=== PATIENT | male | born 1935 | race American Indian/Alaskan Native ===

== ENCOUNTER 2018-02-18 18:02 | Emergency (ER) | payer MEDICARE, MEDICAID ==
--- NOTE | 2018-02-18 18:03 | EDM.PDOC ---
<Ck Dillard - Last Filed: 02/18/18 17:52> ED HPI GENERAL MEDICAL PROBLEM - General Chief Complaint: Neuro Symptoms/Deficits Stated Complaint: STROKE Time Seen by Provider: 02/18/18 17:40 Source of Information: Reports: Patient History Limitations: Reports: No Limitations - History of Present Illness INITIAL COMMENTS - FREE TEXT/NARRATIVE: This 82 yo male patient was brought to the ED by [facility] due to altered mentation and possible stroke. The patient's family reported to EMS that the patient was last seen normal at about 1600 today. When they got home (just before calling EMS), the patient was found siting in the lazy[place] not responding normally. The patient reports he started getting sick 2 days ago and has gotten worse today. The patient reports he has had a productive cough over the past couple of days. The patient reports he has noticed increased lower extremity swelling in addition to the other symptoms. Onset Date: 02/17/18 (according to patient with cough and generalized weakness) Duration: Constant Location: Reports: Chest Quality: Reports: Other Severity: Severe Improves with: Reports: None Worsens with: Reports: None Context: Reports: Other Associated Symptoms: Reports: cough w sputum, Weakness - Related Data Allergies Allergy/AdvReac Type Severity Reaction Status Date / Time No Known Allergies Allergy Verified 02/18/18 18:27 Home Meds: Home Meds Furosemide 20 mg PO DAILY 02/18/18 [History] Lisinopril 20 mg PO DAILY 02/18/18 [History] Potassium Chloride 10 meq PO BID 02/18/18 [History] metFORMIN [Glucophage XR] 500 mg PO BID 02/18/18 [History] ED ROS GENERAL - Review of Systems Review Of Systems: ROS reveals no pertinent complaints other than HPI. ED EXAM, GENERAL - Physical Exam Exam: See Below Exam Limited By: No Limitations General Appearance: Alert, WD/WN, Moderate Distress, Thin Eye Exam: Bilateral Eye: EOMI, Normal Inspection, PERRL Ears: Normal External Exam, Normal Canal, Hearing Grossly Normal, Normal TMs Nose: Normal Inspection, Normal Mucosa, No Blood Throat/Mouth: Normal Inspection, Normal Lips, Normal Teeth, Normal Gums, Normal Oropharynx, Normal Voice, No Airway Compromise Head: Atraumatic, Normocephalic Neck: Normal Inspection, Supple, Non-Tender, Full Range of Motion Respiratory/Chest: Decreased Breath Sounds, Rhonchi (bilateral lower lobes) Cardiovascular: Normal Peripheral Pulses, Regular Rate, Rhythm, No Gallop, No JVD, No Murmur, No Rub GI/Abdominal: Normal Bowel Sounds, Soft, Non-Tender, No Organomegaly, No Distention, No Abnormal Bruit, No Mass (Male) Exam: Deferred Rectal (Males) Exam: Deferred Back Exam: Normal Inspection, Full Range of Motion, NT Extremities: Pedal Edema (bilateral 3+) Neurological: Alert, Oriented, CN II-XII Intact, Normal Cognition, Normal Gait, Normal Reflexes, No Motor/Sensory Deficits Psychiatric: Normal Affect, Normal Mood Skin Exam: Warm, Dry, Intact, Normal Color, No Rash Lymphatic: No Adenopathy Course - Vital Signs Last Recorded V/S: Last Vital Signs Temp 97.2 F 02/18/18 17:30 Pulse 75 02/18/18 17:30 Resp 17 02/18/18 17:30 BP 127/76 02/18/18 17:30 Pulse Ox 97 02/18/18 17:30 - Orders/Labs/Meds Orders: Active Orders 24 hr Category Date Time Status EKG Documentation Completion [RC] URGENT Care 02/18/18 17:37 Active CULTURE BLOOD [BC] Stat Lab 02/18/18 17:58 Received Labs: Laboratory Tests 02/18/18 02/18/18 02/18/18 Range/Units 17:25 17:58 17:58 WBC (5.0-10.0) 10^3/uL RBC (4.6-6.2) 10^6/uL Hgb (14.0-18.0) g/dL Hct (40.0-54.0) % MCV (80-100) fL MCH (27.0-34.0) pg MCHC (33.0-35.0) g/dL Plt Count (150-450) 10^3/uL Neut % (Auto) (42.2-75.2) % Lymph % (Auto) (20.5-50.1) % Jasper % (Auto) (2-8) % Eos % (Auto) (1.0-3.0) % Baso % (Auto) (0.0-1.0) % Sodium (135-145) mmol/L Potassium (3.6-5.0) mmol/L Chloride (101-111) mmol/L Carbon Dioxide (21.0-31.0) mmol/L Anion Gap BUN (7-18) mg/dL Creatinine (0.6-1.3) mg/dL Est Cr Clr Drug Dosing Estimated GFR (MDRD) BUN/Creatinine Ratio Glucose (74-105) mg/dL POC Glucose 127 H (83-110) mg/dl Lactic Acid (0.5-2.2) mmol/L Calcium (8.4-10.2) mg/dl Total Bilirubin (0.2-1.0) mg/dL AST (10-42) IU/L ALT (10-60) IU/L Alkaline Phosphatase (42-121) IU/L Ammonia 13 (11-35) umol/L Troponin I (0.00-0.02) ng/ml B-Natriuretic Peptide (0-100) pg/ml Total Protein (6.7-8.2) g/dl Albumin (3.2-5.5) g/dl Globulin Albumin/Globulin Ratio Amylase 63 (28-100) U/L Lipase 14 L (22-51) U/L Ethyl Alcohol mg/dL 02/18/18 02/18/18 02/18/18 Range/Units 17:58 17:58 17:58 WBC 10.7 H (5.0-10.0) 10^3/uL RBC 3.69 L (4.6-6.2) 10^6/uL Hgb 10.9 L (14.0-18.0) g/dL Hct 34.0 L (40.0-54.0) % MCV 92.1 (80-100) fL MCH 29.5 (27.0-34.0) pg MCHC 32.1 L (33.0-35.0) g/dL Plt Count 182 (150-450) 10^3/uL Neut % (Auto) 71.0 (42.2-75.2) % Lymph % (Auto) 18.8 L (20.5-50.1) % Jasper % (Auto) 7.5 (2-8) % Eos % (Auto) 2.0 (1.0-3.0) % Baso % (Auto) 0.7 (0.0-1.0) % Sodium 135 (135-145) mmol/L Potassium 4.3 (3.6-5.0) mmol/L Chloride 104 (101-111) mmol/L Carbon Dioxide 25.0 (21.0-31.0) mmol/L Anion Gap 10.3 BUN 14 (7-18) mg/dL Creatinine 0.8 (0.6-1.3) mg/dL Est Cr Clr Drug Dosing TNP Estimated GFR (MDRD) > 60 BUN/Creatinine Ratio 17.50 Glucose 129 H (74-105) mg/dL POC Glucose (83-110) mg/dl Lactic Acid 1.4 (0.5-2.2) mmol/L Calcium 8.6 (8.4-10.2) mg/dl Total Bilirubin 0.5 (0.2-1.0) mg/dL AST 23 (10-42) IU/L ALT 11 (10-60) IU/L Alkaline Phosphatase 99 (42-121) IU/L Ammonia (11-35) umol/L Troponin I 0.04 H* (0.00-0.02) ng/ml B-Natriuretic Peptide (0-100) pg/ml Total Protein 6.9 (6.7-8.2) g/dl Albumin 3.3 (3.2-5.5) g/dl Globulin 3.6 Albumin/Globulin Ratio 0.92 Amylase (28-100) U/L Lipase (22-51) U/L Ethyl Alcohol mg/dL 02/18/18 02/18/18 Range/Units 17:58 17:58 WBC (5.0-10.0) 10^3/uL RBC (4.6-6.2) 10^6/uL Hgb (14.0-18.0) g/dL Hct (40.0-54.0) % MCV (80-100) fL MCH (27.0-34.0) pg MCHC (33.0-35.0) g/dL Plt Count (150-450) 10^3/uL Neut % (Auto) (42.2-75.2) % Lymph % (Auto) (20.5-50.1) % Jasper % (Auto) (2-8) % Eos % (Auto) (1.0-3.0) % Baso % (Auto) (0.0-1.0) % Sodium (135-145) mmol/L Potassium (3.6-5.0) mmol/L Chloride (101-111) mmol/L Carbon Dioxide (21.0-31.0) mmol/L Anion Gap BUN (7-18) mg/dL Creatinine (0.6-1.3) mg/dL Est Cr Clr Drug Dosing Estimated GFR (MDRD) BUN/Creatinine Ratio Glucose (74-105) mg/dL POC Glucose (83-110) mg/dl Lactic Acid (0.5-2.2) mmol/L Calcium (8.4-10.2) mg/dl Total Bilirubin (0.2-1.0) mg/dL AST (10-42) IU/L ALT (10-60) IU/L Alkaline Phosphatase (42-121) IU/L Ammonia (11-35) umol/L Troponin I (0.00-0.02) ng/ml B-Natriuretic Peptide 63 (0-100) pg/ml Total Protein (6.7-8.2) g/dl Albumin (3.2-5.5) g/dl Globulin Albumin/Globulin Ratio Amylase (28-100) U/L Lipase (22-51) U/L Ethyl Alcohol < 5 mg/dL Meds: Medications Discontinued Medications Generic Name Dose Route Start Last Admin Trade Name Freq PRN Reason Stop Dose Admin Alteplase, Recombinant 7 mg 02/18/18 20:10 02/18/18 20:35 Activase IVPUSH 02/18/18 20:11 7 mg ONETIME ONE Administration Alteplase, Recombinant 61 mg 02/18/18 20:17 02/18/18 20:36 Activase IV 02/18/18 20:18 61 mg .INFUSION ONE Administration Levetiracetam 1,000 mg/ Sodium 110 mls @ 400 mls/hr 02/18/18 19:31 02/18/18 19:46 Chloride IV 02/18/18 19:45 400 mls/hr ONETIME ONE Administration Departure - Departure Disposition: DC/Tfer to Acute Hospital 02 Clinical Impression: Observed seizure-like activity Altered mental status, unspecified Qualifiers: Altered mental status type: disorientation Qualified Code(s): R41.0 - Disorientation, unspecified - Discharge Information Referrals: PCP,None [Primary Care Provider] - Forms: ED Department Discharge <Tatiana Walton - Last Filed: 02/19/18 03:10> Course - Re-Assessments/Exams Free Text/Narrative Re-Assessment/Exam: 02/19/18 03:03 TC consult [facility], No bed available. TC Dr. Dillon Read, accepting of patient. Dr. Rafael Williamson requesting initiation of TpA. Risks benefits discussed with niece/guardian. Desire to proceed with infusion. Family requesting DNR.status for patient prior to transfer. Patient alert , speech mostly clear, nonsensical, does not follow most verbal commands but will mimic actions. VSS. Family at bedside. Departure - Departure Time of Disposition: 21:55 Condition: Undetermined
[2018-02-18 18:29] LABS: CHLORIDE,CL 104 mmol/L (101-111); SODIUM,NA 135 mmol/L (135-145)
[2018-02-18] MEDS ORDERED: levETIRAcetam 1,000 MG in Sodium Chloride 0.9% 100 ML IV ONE (19:31)
--- NOTE | 2018-02-19 13:24 | EKG ---
02/18/2018- AGUILAR OSORIO - FINDINGS: EKG, per my reading, shows sinus rhythm with right bundle-branch block at the rate of 76. [facility] /[id number]
== END 2018-02-18 20:50 ==
LOC: DL.ED 18:02
DX: R56.9 Unspecified convulsions (principal); R41.0 Disorientation, unspecified; Z79.899 Other long term (current) drug therapy; Z79.84 Long term (current) use of oral hypoglycemic drugs
CPT/HCPCS: 36415; 70450; 71045; 80053; 82140; 82150; 82962; 83605; 83690; 83880; 84484; 85025; 87040; 93005; 93010; 96365; 96375; 99285; G0480; J1953; J2997; J7050

== ENCOUNTER 2018-07-02 07:08 | Day surgery (SDC) | payer MEDICARE, MEDICAID ==
[~2018-07-02 07:08] MED LIST: Midazolam 1 MG/ML 2 ML SDV ONE; fentaNYL 100 MCG/2 ML SDV ONE
[2018-07-02] MEDS ORDERED: fentaNYL 100 MCG/2 ML SDV IV ONE ×2 (08:05→08:06)
[2018-07-02] MEDS ORDERED: Midazolam 1 MG/ML 2 ML SDV IV ONE (08:07)
[2018-07-02] MEDS ORDERED: Dextrose 5%-0.45% NaCl 1,000 ML IV SCH (08:15)
--- NOTE | 2018-07-02 14:18 | OR ---
DATE: 07/02/2018 PROCEDURE: Esophagogastroduodenoscopy and multiple pinch biopsies. INSTRUMENT USED: [id number] Olympus video panendoscope. PREMEDICATIONS: No oral topical anesthesia used. Fentanyl 100 mcg intravenous and Versed 1 mg intravenous. The procedure was done under pulse oximetry, BP recording, and cardiac cath tech. INDICATION: The patient with previous gastric surgery and recently detected iron-deficiency anemia. Also has difficulties of chronic diarrhea. Esophagogastroduodenoscopy is for formal detection of any active erosive lesions, malignancy also under consideration, H. pylori status to be determined, endoscopic hemostasis therapy if needed. PROCEDURE IN DETAIL: The scope was passed with ease. Adequate visualization of the esophagus was made from [id number] areas. No upper esophageal lesions were identified. No distal esophageal stricture. No uphill or downhill esophageal varices. No Rita-Nicolas tear. No evidence of erosive esophagitis by [place] criteria. No esophageal polyp or tumor mass identified. Z-line was seen at around 40 cm distal to the oral verge, configuration consistent with grade 1 by ZAP classification. No proximal gastric varices noted. Gastric fundus examination by retroflexion showed no polypoid lesions. No gastric ulcer, malignant mass, or vascular ectasia identified. Visualized loops of the small bowel were unremarkable. Multiple pinch biopsies were taken from the distal and proximal gastric mucosa and sent for PyloriTek test for H. pylori, and if negative in an hour, the tissue is to be sent for histopathology. No bleeding was noted from any of the visualized areas at the completion of examination. Photographs were taken of the surgical site, gastric fundus, as well as distal esophagus. IMPRESSION: Status post gastric surgery. The patient tolerated the procedure well. [facility] /[id number]
--- NOTE | 2018-07-03 08:58 | LETTER ---
07/02/2018 Marilyn Strickland MD [facility] [address] [place] [address] RE: AGUILAR OSORIO : [address] Strickland: Mr. Aguilar Osorio had esophagogastroduodenoscopy done this morning and he tolerated the procedure well. I herewith send a copy of the endoscopy note and photographs for your review. Thank you. Sincerely, [facility] /[id number]
== END 2018-07-02 09:55 | disposition home or self-care (01) ==
LOC: DL.ENDO 07:08
PROVIDERS: ATTEND Internal Medicine Gastroenterology
DX: D50.9 Iron deficiency anemia, unspecified (principal); K52.9 Noninfective gastroenteritis and colitis, unspecified; K29.50 Unspecified chronic gastritis without bleeding; Z98.84 Bariatric surgery status
CPT/HCPCS: 43239; 87077; J7042; J2250; J3010

== ENCOUNTER 2018-07-09 06:18 | Day surgery (SDC) | payer MEDICARE, MEDICAID ==
[~2018-07-09 06:18] MED LIST changes: +Dextrose 5%-0.45% NaCl 1,000 ML IV SCH; +Sodium Chloride 0.9% 10 ML Syringe FLUSH PRN
[2018-07-09] MEDS ORDERED: fentaNYL 100 MCG/2 ML SDV IV ONE ×3 (06:19→07:12)
== END 2018-07-09 09:23 | disposition home or self-care (01) ==
LOC: DL.ENDO 06:18
PROVIDERS: ATTEND Internal Medicine Gastroenterology
DX: D50.9 Iron deficiency anemia, unspecified (principal); K52.9 Noninfective gastroenteritis and colitis, unspecified; Z53.8 Procedure and treatment not carried out for other reasons
CPT/HCPCS: J3010; J7042

== ENCOUNTER 2019-12-12 07:01 | Emergency (ER) | payer MEDICARE, MEDICAID ==
--- NOTE | 2019-12-12 07:13 | PCM.SN ---
- Free Text/Narrative Note: Michael Chacko (Frank) is an 84-year-old male who resides at [facility] (formerly [facility]). I received a call from the nursing staff at 0630 this morning to say that Irwin was complaining of abdominal pain. They reported that his abdomen seemed distended, with high-pitched bowel sounds. No vomiting or diarrhea. No blood by mouth or rectum. Last BM last night. VS this mornin/77. HR 74. RR 18. Temp97.5F. Ox Sat 96% RA. Past Medical History: Hypertension. COPD, continues to smoke. Type 2 diabetes, which has been diet controlled. However, most recent A1c increased to 10.4% from 6.6% one year ago; plan to restart on meds. 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 Note: was admitted to [facility] in August 2018 when he presented with abdominal pain. CT showed changes in colon consistent with a colitis. No recurrent since that time. Failed to show up for a colonoscopy. Impression: Abdominal pain. Past history as above. Plan: Referred to ED for further evaluation.
[2019-12-12] MEDS ORDERED: Iopamidol 612 MG/ML 100 ML Bottle IVPUSH ONE (07:45)
--- NOTE | 2019-12-12 07:52 | EDM.PDOC ---
ED HPI GENERAL MEDICAL PROBLEM - General Chief Complaint: Abdominal Pain Stated Complaint: ABDOMINAL PAIN Time Seen by Provider: 12/12/19 07:20 Source of Information: Reports: Patient, Penitentiary Records, Provider (Dr. Hein), RN, RN Notes Reviewed History Limitations: Reports: No Limitations - History of Present Illness INITIAL COMMENTS - FREE TEXT/NARRATIVE: patient presents to ER from [facility] with the complaint of abdominal distention, abdominal pain, nausea. Patient states it's been several days since his last normal bowel movement. Yesterday he states he had several small hard pieces. Today he had a small bowel movement that was loose. Onset: Today, Sudden Upper Abdomen Pain Score (Numeric/FACES): 8 - Related Data Allergies Allergy/AdvReac Type Severity Reaction Status Date / Time No Known Allergies Allergy Verified 12/12/19 06:52 Home Meds: Home Meds Lisinopril 20 mg PO DAILY 02/18/18 [History] Aspirin [Halfprin] 81 mg PO DAILY 07/02/18 [History] Cyanocobalamin (Vitamin B-12) [B-12] 1,000 mcg PO DAILY 07/02/18 [History] traZODone HCl [Trazodone HCl] 50 mg PO BEDTIME 07/02/18 [History] Acetaminophen 650 mg PO Q6H PRN 12/12/19 [History] Albuterol [Proventil Neb Soln] 2.5 mg NEB Q4H PRN 12/12/19 [History] Bisacodyl [Dulcolax] 1 supp RECTAL DAILY PRN 12/12/19 [History] Tamsulosin [Flomax] 0.4 mg PO DAILY 12/12/19 [History] guaiFENesin/Dextromethorphan [Mucinex Dm ER 600-30 mg Tablet] 1 each PO BID [History] Past Medical History HEENT History: Reports: Cataract, Impaired Vision, Other (See Below) Other HEENT History: difficulty swallowing when eating Cardiovascular History: Reports: Heart Failure, Hypertension, Pacemaker Respiratory History: Reports: Asthma, Bronchitis, Recurrent, SOB Gastrointestinal History: Reports: Chronic Diarrhea, Other (See Below) Other Gastrointestinal History: some bowel incontinence Musculoskeletal History: Reports: Arthritis Neurological History: Reports: CVA, Headaches, Chronic Other Neuro History: chronic acute headaches. stroke in 50's Psychiatric History: Reports: Depression Endocrine/Metabolic History: Reports: Diabetes, Type II, Obesity/BMI 30+ Hematologic History: Reports: None Immunologic History: Reports: None Oncologic (Cancer) History: Reports: None Dermatologic History: Reports: None Other Dermatologic History: tattoos on arms bilaterally - Infectious Disease History Infectious Disease History: Reports: Chicken Pox, Measles, Mumps, Pertussis ( Whooping Cough) - Past Surgical History HEENT Surgical History: Reports: Cataract Surgery Other HEENT Surgeries/Procedures: bilateral cataract surgery Cardiovascular Surgical History: Reports: Other (See Below) Other Cardiovascular Surgeries/Procedures: has pacemaker GI Surgical History: Reports: EGD Other GI Surgeries/Procedures: some incontinence Neurological Surgical History: Reports: None Musculoskeletal Surgical History: Reports: None Social & Family History - Family History Family Medical History: Noncontributory - Tobacco Use Smoking Status *Q: Current Every Day Smoker Years of Tobacco use: 56 Packs/Tins Daily: 0.3 Used Tobacco, but Quit: No Second Hand Smoke Exposure: No - Caffeine Use Caffeine Use: Reports: Coffee, Soda, Tea Caffeine Use Comment: 4-5 CUPS DAILY - Recreational Drug Use Recreational Drug Use: No ED ROS GENERAL - Review of Systems Review Of Systems: Comprehensive ROS is negative, except as noted in HPI. ED EXAM, GI/ABD - Physical Exam Exam: See Below Exam Limited By: No Limitations General Appearance: Alert, WD/WN, No Apparent Distress, Moderate Distress Eyes: Bilateral: Normal Appearance, EOMI Ears: Normal External Exam, Hearing Grossly Normal Nose: Normal Inspection Throat/Mouth: Normal Inspection, Normal Voice, No Airway Compromise Head: Atraumatic, Normocephalic Neck: Normal Inspection, Supple, Non-Tender, Full Range of Motion Respiratory/Chest: No Respiratory Distress, No Accessory Muscle Use, Chest Non- Tender, Decreased Breath Sounds Cardiovascular: Normal Peripheral Pulses, Regular Rate, Rhythm, No Edema, No Gallop, No JVD, No Murmur, No Rub GI/Abdominal Exam: Distended, Tender, Abnormal Bowel Sounds (Hypoactive) (Male) Exam: Deferred Rectal (Males) Exam: Deferred Back Exam: Normal Inspection Extremities: Normal Inspection, Normal Range of Motion, Non-Tender, No Pedal Edema, Normal Capillary Refill Neurological: Alert, Oriented, CN II-XII Intact, Normal Cognition Psychiatric: Normal Affect, Normal Mood Skin Exam: Warm, Dry, Intact, Normal Color, No Rash Lymphatic: No Adenopathy Course - Vital Signs Last Recorded V/S: Last Vital Signs Temp 97.0 F 12/12/19 07:08 Pulse 86 12/12/19 07:08 Resp 18 12/12/19 07:08 BP 179/68 H 12/12/19 07:08 Pulse Ox 99 12/12/19 07:08 - Orders/Labs/Meds Labs: Laboratory Tests 12/12/19 12/12/19 12/12/19 Range/Units 07:20 07:20 07:20 WBC 11.0 H (5.0-10.0) 10^3/uL RBC 4.33 L (4.6-6.2) 10^6/uL Hgb 12.7 L D (14.0-18.0) g/dL Hct 38.4 L (40.0-54.0) % MCV 88.7 D (80-100) fL MCH 29.3 (27.0-34.0) pg MCHC 33.1 (33.0-35.0) g/dL Plt Count 213 D (150-450) 10^3/uL Neut % (Auto) 82.7 H (42.2-75.2) % Lymph % (Auto) 11.7 L (20.5-50.1) % Wy[place] % (Auto) 5.2 (2-8) % Eos % (Auto) 0.1 L (1.0-3.0) % Baso % (Auto) 0.3 (0.0-1.0) % Sodium 129 L (135-145) mmol/L Potassium 3.5 L (3.6-5.0) mmol/L Chloride 100 L (101-111) mmol/L Carbon Dioxide 18.0 L (21.0-31.0) mmol/L Anion Gap 14.5 BUN 26 H (7-18) mg/dL Creatinine 1.0 (0.6-1.3) mg/dL Est Cr Clr Drug Dosing 46.98 mL/min Estimated GFR (MDRD) > 60 BUN/Creatinine Ratio 26.00 Glucose 327 H (74-105) mg/dL Lactic Acid 1.0 (0.5-2.0) mmol/L Calcium 8.5 (8.4-10.2) mg/dl Total Bilirubin 0.8 (0.2-1.0) mg/dL AST 19 (10-42) IU/L ALT 24 (10-60) IU/L Alkaline Phosphatase 113 (42-121) IU/L Total Protein 7.5 (6.7-8.2) g/dl Albumin 3.5 (3.2-5.5) g/dl Globulin 4.0 Albumin/Globulin Ratio 0.88 Amylase 42 (28-100) U/L Lipase 19 L (22-51) U/L Meds: Medications Discontinued Medications Generic Name Dose Route Start Last Admin Trade Name Freq PRN Reason Stop Dose Admin Fentanyl 50 mcg 12/12/19 08:22 12/12/19 08:35 Sublimaze IVPUSH 12/12/19 08:23 50 mcg ONETIME ONE Administration Sodium Chloride 1,000 mls @ 150 mls/hr 12/12/19 08:22 12/12/19 08:34 Normal Saline IV 12/12/19 15:01 150 mls/hr .BOLUS ONE Administration Iopamidol 100 ml 12/12/19 07:45 12/12/19 08:11 Isovue-300 (61%) IVPUSH 12/12/19 07:46 75 ml ONETIME ONE Administration - Radiology Interpretation Free Text/Narrative:: CT Abdomen/Pelvis with contrast: FINDINGS: Heart: Cardiac left ventricular chorda tendineae calcification. Mediastinum: A small sliding hiatal hernia is present above the level of the diaphragm. Liver: Normal. No mass. Gallbladder and bile ducts: The gallbladder is partially contracted. Pancreas: Severe pancreatic atrophy. Spleen: Normal. No splenomegaly. Adrenals: Normal. No mass. Kidneys and ureters: Left renal 16 mm cyst. Stomach and bowel: Sigmoid colonic volvulus (series 3, images 26-41). Marked distension of the sigmoid and proximal colon. No specific evidence of bowel wall necrosis. Appendix: The vermiform appendix is normal. Intraperitoneal space: Unremarkable. No free air. No significant fluid collection. Vasculature: Moderate aortic atherosclerotic calcification without aneurysm. The iliac arteries show moderate bilateral atherosclerotic calcifications without evidence of aneurysm. Atherosclerotic calcifications are present involving the RCA coronary artery. Lymph nodes: No enlarged lymph nodes. Bladder: Unremarkable as visualized. Reproductive: Unremarkable as visualized. Bones/joints: Grade 1 L4-5 degenerative type anterolisthesis. Mild L2-L3 retrolisthesis. Moderate T12-L1 and L1-L2 spondylosis . Mild L5-S1 retrolisthesis. Diffuse osteopenia. Bilateral lower lumbar facet primary osteoarthritis. Soft tissues: Unremarkable. IMPRESSION: 1. Sigmoid colonic volvulus. 2. Marked distension of the sigmoid and proximal colon. 3. Left renal cyst. 4. Small hiatal hernia. 5. Coronary atherosclerosis. Thank you for allowing us to participate in the care of your patient. Dictated and Authenticated by: Mayito Abbott MD 12/12/2019 8:48 AM Central Time ([place] & [place]) See rad report Departure - Departure Time of Disposition: 09:33 Disposition: DC/Tfer to Acute Hospital 02 Condition: Serious Clinical Impression: Volvulus of sigmoid colon - Discharge Information *PRESCRIPTION DRUG MONITORING PROGRAM REVIEWED*: No *COPY OF PRESCRIPTION DRUG MONITORING REPORT IN PATIENT MAYELIN: No Forms: ED Department Discharge, Interfacility Transfer EMTALA Sepsis Event Note - Evaluation Sepsis Screening Result: No Definite Risk - Focused Exam Date Exam was Performed: 12/17/19 Time Exam was Performed: 00:32
[2019-12-12 08:03] LABS: ANION GAP 14.5; CHLORIDE,CL 100 mmol/L (101-111); SODIUM,NA 129 mmol/L (135-145)
[2019-12-12] MEDS ORDERED: Sodium Chloride 0.9% 1,000 ML IV ONE (08:22)
[2019-12-12] MEDS ORDERED: fentaNYL 100 MCG/2 ML SDV IVPUSH ONE (08:22)
== END 2019-12-12 09:30 ==
LOC: DL.ED 07:01
DX: K56.2 Volvulus (principal); I11.0 Hypertensive heart disease with heart failure; I50.9 Heart failure, unspecified; E11.9 Type 2 diabetes mellitus without complications; E66.9 Obesity, unspecified; F32.9 Major depressive disorder, single episode, unspecified; F17.210 Nicotine dependence, cigarettes, uncomplicated; J45.909 Unspecified asthma, uncomplicated; Z79.82 Long term (current) use of aspirin; Z68.31 Body mass index [BMI] 31.0-31.9, adult; Z86.73 Personal history of transient ischemic attack (TIA), and cerebral infarction without residual deficits; Z79.899 Other long term (current) drug therapy
CPT/HCPCS: 36415; 74177; 80053; 82150; 83605; 83690; 85025; 96361; 96374; 99285; J3010; J7030; Q9967